=== PATIENT | female | born 1990 | race Caucasian/White ===

== ENCOUNTER 2016-09-20 05:36 | Emergency (ER) | payer OTHER ==
--- NOTE | ~2016-09-20 | CR72 ---
[facility] A Service of [facility] & [facility] RADIOLOGY TEXT RESULTS PATIENT: BAYRON GUPTA LOCATION: [facility] : [birth year] UNIT #: [id number] AGE: [address]: Leelee Sanchez MD SEX: F ORDER DR: [id number] [facility] [address] [place], [place] [address] [id number] E MR#: [id number] Acc #: [id number] NAME: BAYRON GUPTA : 1990 SEX: F STUDY DATE/TIME: 09/20/2016 5:30 UNIT: [facility] ROOM: STUDY DESCRIPTION: CR Chest Single View Portable Attending Physician: Leelee Sanchez M.D. Ordering Physician: Ed Doctor [id number] [facility] Primary Care Physician: Aquiles Espinosa M.D. MEDICAL IMAGING REPORT This report is preliminary unless electronic signature is present EXAM Portable chest INDICATION Chest pain today PROCEDURE Frontal view chest COMPARISON 04/25/2016 FINDINGS Mild cardiomegaly. No dense consolidation, effusion or pneumothorax. IMPRESSION No active process. Mild cardiomegaly. Dictated by... Stephen Trotter M.D. THIS IS AN ELECTRONICALLY VERIFIED REPORT Stephen Trotter M.D. at 09/20/2016 9:56 PM Ermelinda TD: 09/20/2016 08:58 JOB #: [id number] MEDICAL IMAGING REPORT Page 1 of 1 COPY
--- NOTE | ~2016-09-20 | EKG ---
PATIENT: BAYRON GUPTA UNIT #: [id number] Ventricular Rate: 89 BPM Atrial Rate: 89 BPM P-R Interval: 120 ms QRS Duration: 80 ms Q-T Interval: 354 ms QTC Calculation(Bezet): 430 ms P [place]: 27 degrees Calculated R [place]: 31 degrees Calculated T [place]: 29 degrees Diagnosis Line: Normal sinus rhythm Diagnosis Line: Normal ECG Diagnosis Line: Diagnosis Line: Confirmed by DENNIS PINA MD ([id number]) on 09/21/2016 Diagnosis Line: 11:06:44 PM INTERPRETING MD: YOVANI ESTES
[~2016-09-20 05:36] MED LIST: ALBUTEROL17 G1 IH; ATARAX PO; BACTRIM DS TABL1 TA1 PO; CIPRO PO; CIPRO250 MG PO; DARVOCET-N 1001 TAB PO; DICLOFENAC PO; DOXYCYCLINE PO; FIORICET W/CODE1 CAP PO; FLEXERIL10 MG PO; HYDROCORTISONE30 G2 TOP; IBUPROFEN600 MG PO; MACROBID 100 M100 MG PO; MACROBID100 M1; NIZORAL 2% CREA15 GM EXT; NO MEDICATIONS; OMEPRAZOLE20 M1 PO; ORUDIS75 M1 PO; PHENERGAN DM1 ML PO; PHENERGAN PO; PHENERGAN25 M1 PO; PHENERGAN25 MG PO; PREDNISONE10 MG/DOSE PO; PRILOSEC PO; PYRIDIUM100 MG; PYRIDIUM100 MG PO; SULFAMETHOXAZO1 EACH PO; ULTRAM PO; VOLTAREN75 MG PO; ZITHROMAX PO; [UNRECOGNIZED DRUG - OTHER]
[2016-09-20 05:46] LABS: POC - CKMB <1.0 ng/mL (0.0-7.9); POC - TROPONIN <0.05 ng/mL (<=0.05)
[2016-09-20 07:26] LABS: POC - CKMB <1.0 ng/mL (0.0-7.9); POC - TROPONIN <0.05 ng/mL (<=0.05)
[2016-09-20 07:30] LABS: BASOPHIL% 0.5 % (0-2.5); EOSINOPHIL# 0.1 X10e3 (0-0.7); EOSINOPHIL% 0.8 % (0.0-7.0); HEMATOCRIT 38.6 % (35.0-45.0); HEMOGLOBIN 12.6 gm/dL (12.0-16.0); LYMPHOCYTE# 1.4 X10e3 (1.0-3.5); LYMPHOCYTE% 15.3 % (17.0-45.0); MEAN CELL VOLUME 86.3 FL (83-96); MEAN CORPUSCULAR HEMOGLOBIN 28.3 PG (28-34); MEAN CORPUSCULAR HGB CONC 32.8 g/dL (30-36); MONOCYTE# 0.5 X10e3 (0-1.0); NEUTROPHIL# 7.2 X10e3 (1.5-7.1); NEUTROPHIL% 78.4 % (40-75); PLATELET COUNT 192 X10e3 (140-420); RED BLOOD COUNT 4.47 X10e (3.90-5.30); RED CELL DISTRIBUTION WIDTH 14.5 % (11.0-15.5); WHITE BLOOD COUNT 9.1 X10e3 (4.0-10.5)
[2016-09-20 07:34] LABS: DIFF IND NO
[2016-09-20 07:46] LABS: INR 0.9; PARTIAL THROMBOPLASTIN TIME 25.2 SECONDS (23.5-31.3); PROTHROMBIN TIME (PATIENT) 9.3 SECONDS (9.6-11.5)
[2016-09-20 07:51] LABS: ALBUMIN SERUM 3.7 g/dL (3.5-5.0); ALKALINE PHOSPHATASE 49 U/L (32-92); ALT (SGPT) 18 U/L (10-40); AST (SGOT) 16 U/L (10-42); BILIRUBIN,TOTAL 0.5 mg/dL (0.2-2.0); BLOOD UREA NITROGEN 10 mg/dL (9-23); BUN/CREATININE RATIO 16.66; CALCIUM SERUM 9.1 mg/dL (8.4-10.2); CARBON DIOXIDE 24 mmol/L (22-31); CHLORIDE 106 mmol/L (100-111); CREATININE SERUM 0.6 mg/dL (0.6-1.4); GLOM FILT RATE Estimated 124.9 mL/min (>60); GLUCOSE FASTING 113 mg/dL (70-110); POTASSIUM 3.4 mmol/L (3.5-5.1); PROTEIN TOTAL SERUM 7.6 g/dL (6.0-8.3); SODIUM 138 mmol/L (135-145)
[2016-09-20 07:52] LABS: BILIRUBIN, DIRECT <0.1 mg/dL (0.0-0.2); BILIRUBIN,INDIRECT 0.4 mg/dL (0.0-0.9)
== END 2016-09-20 08:40 | disposition home or self-care (01) ==
LOC: CED 05:36
PROVIDERS: Emergency Medicine
DX: F41.9 Anxiety disorder, unspecified (principal); Z87.442 Personal history of urinary calculi; Z90.49 Acquired absence of other specified parts of digestive tract; Z98.890 Other specified postprocedural states; Z88.0 Allergy status to penicillin; Z88.1 Allergy status to other antibiotic agents
CPT/HCPCS: 36415; 71010; 80048; 80076; 82553; 84484; 84703; 85025; 85379; 85610; 85730; 93005; 99284

== ENCOUNTER 2017-01-06 19:25 | Emergency (ER) | payer OTHER ==
[~2017-01-06] VITALS: Ht 154.9 cm; Wt 111.1 kg
--- NOTE | ~2017-01-06 | CT4 ---
[facility] A Service of [facility] RADIOLOGY TEXT RESULTS PATIENT: BAYRON GUPTA LOCATION: SED : [birth year] UNIT #: [id number] AGE: [address]: Oma Burroughs SEX: F ORDER DR: [id number] [address] [address] [id number] E MR#: [id number] Acc #: [id number] NAME: BAYRON GUPTA : 1990 SEX: F STUDY DATE/TIME: 01/06/2017 20:54 UNIT: SED ROOM: STUDY DESCRIPTION: CT Abd and Pelv Wo Cont Attending Physician: Oma Burroughs Pa-C Ordering Physician: Oma Burroughs Pa-C Primary Care Physician: Aquiles Espinosa M.D. MEDICAL IMAGING REPORT This report is preliminary unless electronic signature is present. EXAM CT abdomen and pelvis without contrast 01/06/2017 HISTORY 26-year-old female with lower back pain and hematuria beginning today. COMPARISON CT abdomen and pelvis 06/04/2013 TECHNIQUE Helical scan performed through the abdomen and pelvis without IV contrast. Coronal and sagittal reformatted images. This CT exam was performed with one or more of the following radiation dose reduction techniques: automatic control, adjustment of mA and/or kV according to patient size, and iterative reconstruction. FINDINGS Visualized lung bases are unremarkable. The liver, spleen, pancreas, both adrenal glands, and both kidneys are within normal limits. No urinary tract stones or hydronephrosis. Gallbladder surgically absent. Abdominal aorta normal in course and caliber. Small bowel is unremarkable without obstruction. Appendix is normal. Colon unremarkable. No free fluid or free air. The urinary bladder, uterus, and right adnexa is unremarkable. 3 cm cystic structure in the left adnexa likely representing an ovarian cyst. No free pelvic fluid. No acute bony abnormality. IMPRESSION 1. No acute abdominal or pelvic findings. 2. Negative for urinary tract stones or hydronephrosis. 3. Normal appendix. [facility] A Service of [facility] RADIOLOGY TEXT RESULTS PATIENT: BAYRON GUPTA LOCATION: SED : [birth year] UNIT #: [id number] AGE: [address]: Oma Burroughs PAC SEX: F ORDER DR: 4. 3 cm cystic structure in the left adnexa, likely representing a functional ovarian cyst. Dictated by... Rashel Epperson M.D. THIS IS AN ELECTRONICALLY VERIFIED REPORT Rashel Epperson M.D. at 01/07/2017 10:04 AM ROJAS/mila TD: 01/07/2017 04:34 JOB #: [id number] MEDICAL IMAGING REPORT Page 1 of 1
[2017-01-06] MEDS ORDERED: PHENTERMINE PO (19:41)
[2017-01-06] MEDS ORDERED: BIRTH CONTROL PILL PO (19:41)
[2017-01-06 20:06] LABS: URINE SOURCE CLEAN CATCH
[2017-01-06 20:13] LABS: URINE APPEARANCE HAZY; URINE BILIRUBIN NEG (NEG); URINE BLOOD 2+ (NEG); URINE COLOR YELLOW; URINE GLUCOSE NEG (NORM); URINE LEUKOCYTE ESTERASE 1+ (NEG); URINE NITRATE NEG (NEG); URINE PH 5.5 (5-8); URINE PROTEIN TRACE (NEG); URINE SPECIFIC GRAVITY >=1.030 (1.003-1.035)
[2017-01-06 20:16] LABS: MICRO INDICATED? YES; URINE KETONE 2+ (NEG)
[2017-01-06 20:19] LABS: CULTURE INDICATED? YES; URINE BACTERIA 1+ (NEG); URINE CRYSTALS CALCIUM OXALATE /[HPF]; URINE RBC 25-50 /[HPF] (0-2); URINE SQUAMOUS EPITHELIAL CELL MODERATE /[HPF]
[2017-01-06 20:20] LABS: URINE AMORPHOUS SEDIMENT AMORP URATES; URINE MUCUS PRESENT; URINE TRANSITIONAL EPI CELLS FEW /[HPF]
[2017-01-06] MEDS ORDERED: VOLTAREN75 MG PO (21:56)
== END 2017-01-06 21:57 | disposition home or self-care (01) ==
LOC: SED 19:25
PROVIDERS: Physician Assistant Medical
DX: M54.5 Low back pain (principal); F41.9 Anxiety disorder, unspecified; Z87.442 Personal history of urinary calculi; Z90.49 Acquired absence of other specified parts of digestive tract; Z88.0 Allergy status to penicillin; Z79.899 Other long term (current) drug therapy
CPT/HCPCS: 74176; 81003; 84703; 87086; 99284

== ENCOUNTER 2017-01-17 21:46 | Emergency (ER) | payer OTHER ==
[~2017-01-17] VITALS: Ht 154.9 cm; Wt 110.7 kg
[~2017-01-17 21:46] MED LIST changes: +BIRTH CONTROL PILL PO; +PHENTERMINE PO
== END 2017-01-18 01:08 | disposition home or self-care (01) ==
LOC: SED 21:46
DX: N94.6 Dysmenorrhea, unspecified (principal); N92.1 Excessive and frequent menstruation with irregular cycle; Z88.0 Allergy status to penicillin; Z88.1 Allergy status to other antibiotic agents; Z79.899 Other long term (current) drug therapy
CPT/HCPCS: 99283

== ENCOUNTER 2017-02-26 14:23 | Emergency (ER) | payer OTHER ==
--- NOTE | ~2017-02-26 | CR252 ---
[facility]. [facility] A Service of [facility] & [facility] RADIOLOGY TEXT RESULTS PATIENT: BAYRON GUPTA LOCATION: SED : [birth year] UNIT #: [id number] AGE: [address]: Noemy Garcia APRN SEX: F ORDER DR: [id number] [address] [address] [id number] E MR#: [id number] Acc #: [id number] NAME: BAYRON GUPTA : 1990 SEX: F STUDY DATE/TIME: 02/26/2017 14:53 UNIT: SED ROOM: STUDY DESCRIPTION: CR Tibia and Fibula 2 Views Lt Attending Physician: Noemy Garcia A.P.R.N. Ordering Physician: Noemy Shirley A.P.R.N. Primary Care Physician: Aquiles Espinosa M.D. MEDICAL IMAGING REPORT This report is preliminary unless electronic signature is present. EXAM 2 views of the left tibia-fibula 02/26/2017 HISTORY 26-year-old female left leg pain after falling today. FINDINGS There is no evidence of fracture, dislocation, or radiopaque foreign body. IMPRESSION Normal tibia and fibula. Dictated by... Wilma Smith M.D. THIS IS AN ELECTRONICALLY VERIFIED REPORT Wilma Smith M.D. at 02/27/2017 7:46 PM LLH/pcl TD: 02/27/2017 12:56 JOB #: [id number] MEDICAL IMAGING REPORT Page 1 of 1
[2017-02-26] MEDS ORDERED: NO MEDICATIONS (14:28)
== END 2017-02-26 16:05 | disposition home or self-care (01) ==
LOC: SED 14:23
DX: S80.12XA Contusion of left lower leg, initial encounter (principal); Z90.89 Acquired absence of other organs; Z90.49 Acquired absence of other specified parts of digestive tract; Z88.0 Allergy status to penicillin; Z88.1 Allergy status to other antibiotic agents; W01.0XXA Fall on same level from slipping, tripping and stumbling without subsequent striking against object, initial encounter; Y92.512 Supermarket, store or market as the place of occurrence of the external cause
CPT/HCPCS: 29540; 73590; 99283